=== PATIENT | male | born 1985 | race Caucasian/White ===

== ENCOUNTER 2016-07-05 07:08 | Emergency (ER) | payer SELFPAY ==
[2016-07-05] MEDS ORDERED: VIVLODEX5 MG (07:16)
[2016-07-05] MEDS ORDERED: CYMBALTA60 M1 PO (07:16)
[2016-07-05] MEDS ORDERED: GABAPENTIN800 MG (07:16)
[2016-07-05] MEDS ORDERED: XANAX XR3 MG PO (07:17)
[2016-07-05] MEDS ORDERED: CEPHALEXIN500 M1 PO (08:16)
[2016-07-05 08:47] VITALS: BP 124/89
== END 2016-07-05 08:30 | disposition home or self-care (01) ==
LOC: ED 07:08
DX: S61.511A Laceration without foreign body of right wrist, initial encounter (principal); S61.211A Laceration without foreign body of left index finger without damage to nail, initial encounter; X99.0XXA Assault by sharp glass, initial encounter; Z23 Encounter for immunization
CPT/HCPCS: 90715; A4649

== ENCOUNTER → 2023-09-24 | Outpatient (CLI) | payer OTHER ==
[~2023-09-24] MED LIST: CEPHALEXIN500 M1 PO; CYMBALTA60 M1 PO; GABAPENTIN800 MG; Iohexol 300 - 100 ML VIAL IV ONE; VIVLODEX5 MG; XANAX XR3 MG PO
== END ==
LOC: RAD 08:55
DX: R19.03 Right lower quadrant abdominal swelling, mass and lump (principal)
CPT/HCPCS: Q9967